=== PATIENT | female | born 1980 | race African-American/Black ===

== ENCOUNTER 2019-11-27 02:49 | Emergency (ER) | payer MEDICAID, OTHER ==
[~2019-11-27] VITALS: Ht 162.6 cm; Wt 69.0 kg
[2019-11-27] MEDS ORDERED: SODIUM CHLORIDE 0.9% 1,000 ML IV ONE (03:08)
[2019-11-27] MEDS ORDERED: KETOROLAC 30MG/ML VIAL IV STA (03:08)
[2019-11-27] MEDS ORDERED: ONDANSETRON HCL 4MG/2ML INJ IV STA (03:08)
[2019-11-27 03:46] LABS: CLARITY URINE CLEAR (CLEAR); COLOR URINE YELLOW (YELLOW); KETONES URINE 2+ (NEGATIVE); LEUKOCYTE ESTERASE URINE NEGATIVE (NEGATIVE); NITRITE URINE NEGATIVE (NEGATIVE); OCCULT BLOOD URINE NEGATIVE (NEGATIVE); PH URINE >=9.0 (4.5-8.0); PROTEIN URINE NEGATIVE (NEGATIVE); SPECIFIC GRAVITY URINE 1.015 (1.005-1.030); UROBILINOGEN URINE 0.2 E.U./dL (0.2-1.0)
[2019-11-27 03:55] LABS: HEMATOCRIT. 39.3 % (36.0-48.0); MEAN CORPUSCULAR HEMOGLOBIN 30.3 pg (28.0-32.0); MEAN CORPUSCULAR VOLUME 91.2 fL (81.0-99.0); MEAN PLATELET VOLUME 11.7 fl (7.4-10.4); PLATELET 146 x1000/uL (130-400); RED BLOOD CELL COUNT 4.31 mill/uL (4.2-5.4); RED CELL DISTRIBUTION WIDTH 13.2 % (11.6-14.6)
[2019-11-27 04:05] LABS: CHLORIDE 109 mEq/L (98-107)
[2019-11-27 04:07] LABS: HCG SCREEN NEGATIVE; INR 1.1
[2019-11-27 06:39] LABS: PLATELET ESTIMATE NORMAL
[2019-11-27 06:53] VITALS: BP 129/90
== END 2019-11-27 06:55 | disposition home or self-care (01) ==
LOC: ER 02:49
DX: R10.30 Lower abdominal pain, unspecified (principal); I10 Essential (primary) hypertension; Z87.19 Personal history of other diseases of the digestive system
CPT/HCPCS: 36415; 74176; 80053; 81003; 81025; 83690; 84703; 85025; 85610; 96374; 96375; 99284; J1885; J2405; J7030; Z7610